=== PATIENT | male | born 1935 | race Caucasian/White ===

== ENCOUNTER → 2017-03-01 13:44 | Outpatient (CLI) | payer OTHER | END | disposition home or self-care (01) | LOC: D.RAD 13:44 | DX: M54.16 Radiculopathy, lumbar region (principal); M54.5 Low back pain ==

== ENCOUNTER 2017-03-30 05:23 | Day surgery (SDC) | payer MEDICARE ==
[2017-03-29 12:45] LABS: BASOPHILS 0.3 % (0-2); EOSINOPHILS 3.9 % (0-7); HEMATOCRIT 35.7 % (42.0-54.0); HEMOGLOBIN 12.5 g/dL (13.5-17.5); IMMATURE GRANULOCYTES 0.3 % (0-5); LYMPHOCYTES 18.2 % (15-50); MCH 33.5 pg (26.0-34.0); MCV 95.7 fL (80.0-100.0); MEAN PLATELET VOLUME 9.6 fL (7.4-10.4); MONOCYTES 6.1 % (2-11); NEUTROPHILS 71.2 % (40-80); PLATELET COUNT 186 10x3/uL (130-400); RBC 3.73 10x6/uL (4.20-6.10); RDW 12.6 % (11.5-14.5); WBC 6.9 10x3/uL (4.8-10.8)
[2017-03-29 12:53] LABS: APTT 23.4 SECONDS (22.8-39.4)
[2017-03-29 12:56] LABS: ANION GAP 12.3 mmol/L (8-16); CALCIUM 9.2 mg/dL (8.5-10.1); CARBON DIOXIDE 29.2 mmol/L (21.0-32.0); CREATININE - SERUM 1.5 mg/dL (0.6-1.3); POTASSIUM - SERUM 3.5 mmol/L (3.5-5.1)
[2017-03-29 13:05] LABS: PROTIME 13.1 SECONDS (11.6-15.0)
[~2017-03-30] VITALS: Ht 172.7 cm; Wt 95.3 kg
--- NOTE | ~2017-03-30 | OP ---
PATIENT NAME: ANGY KHALIL MEDICAL RECORD: [id number] :37 LOCATION:[facility] ADMISSION DATE: SURGEON: DUANE VAUGHN MD DATE OF OPERATION: 04/08/2017 PREOPERATIVE DIAGNOSES: Lumbar spinal stenosis and foraminal stenosis L2-L3, left and L4-L5, right. PROCEDURES: Lumbar laminotomy, medial facetectomy and foraminotomy at L2-L3 left at L4-L5 right with METRx retractor and microscopic illumination. DESCRIPTION OF TECHNIQUE: After induction of general endotracheal anesthesia, the patient was rolled prone on chest and hip rolls. The lumbar spine was prepped and draped in usual sterile fashion. Fluoroscopic x-ray and spinal needle localized the L2-L3 and L4-L5 interspaces. Two separate stab incisions were created, one at L2-L3 on the left and L4-L5 on the right. Each level was confirmed with fluoroscopic x-ray. A stab incision was created with a #11 blade in each level. A METRx retractor was advanced to the L2-L3 interspace on the left side and L4-L5 interspace on the right side. The level was confirmed with fluoroscopic x-ray at L2-L3 on the left and L4-L5 on the right. A microscope and Midas Grgeory drill were used to perform a laminotomy, medial facetectomy and foraminotomy at L2-L3 on the left. Hypertrophied ligamentum flavum was removed with Cloward rongeurs. Foraminotomy was carried out further with Cloward rongeurs. Following this, the L2 and L3 nerve roots were decompressed well on the left side. Next, at L4-L5, A Midas Gregory drill and microscope were used to perform a medial facetectomy, laminotomy and a foraminotomy at L4-L5 on the right. Hypertrophied ligamentum flavum was removed from the central canal as well as the foramen. A further foraminotomy was carried out. Following this, the L4 and L5 nerve roots were decompressed well. Meticulous hemostasis was maintained throughout both wounds. A retractor was removed on both wounds. Fascia was closed with 3-0 Vicryl suture at L2-L3 on the left and L4-L5 on the right. The skin and subdermal layer was closed with interrupted 3-0 Vicryl suture. The skin was closed with tera on both wounds. A sterile dressing was applied to both wounds. The patient was awakened in good condition and taken to recovery area. All counts were reported as correct. Estimated blood loss was minimal. TRANSINT:[id number] Voice Confirmation ID: [id number] DOCUMENT ID: [id number] DUANE VAUGHN MD CC: [id number] DICTATION DATE: 04/08/17 08 HOSPITAL TRAY SERVICE WORKER: 04/08/17 1114 [facility] [place] 03/30/17 [place] [id number]
[~2017-03-30 05:23] MED LIST: CALAN120 MG PO; HYDROCHLOROTH12.5 M1 PO
[2017-03-30] MEDS ORDERED: LEUPROLIDE ACETATE SC (06:23)
[2017-03-30 06:33] VITALS: BP 154/80; Ht 172.7 cm; Wt 95.3 kg
--- NOTE | 2017-03-30 08:59 | NUR ---
PATIENT WAS POSITIONED PRONE WITH ALL AREAS CHECKED, INCLUDING PENIS AND SCROTUM FOR ANY IMPINGEMENTS, NONE FOUND ALL AREAS PADDED AND SECURED, ESTHER.
--- NOTE | 2017-03-30 16:39 | NUR ---
1405 DRESSED. AWAKE & ALERT SITTING UP ON SIDE OF BED. GIVEN DISCHARGE INFORMATION INCLUDING MED REC., RTC APPT., LUMBAR SURGERY DISCHARGE INSTRUCTIONS SHEETS, & [facility] OUT PATIENT D/C INSTRUCTIONS. PT & VOICED UNDERSTANDING AFTER QUESTIONS ADDRESSED & ANSWERED. TO PRIVATE CAR PER WHEELCHAIR BY VOLUNTEER. HOME WITH OMAR KHALIL. Yao ACEVES R.N.
== END 2017-03-30 14:05 | disposition home or self-care (01) ==
LOC: D.OPS 05:23 → D.PAN 07:30 → D.OPS 14:05
PROVIDERS: Anesthesiology
DX: M48.06 Spinal stenosis, lumbar region (principal); M51.36 Other intervertebral disc degeneration, lumbar region; Z01.812 Encounter for preprocedural laboratory examination

== ENCOUNTER 2017-06-18 07:57 | Outpatient (CLI) | payer MEDICARE ==
--- NOTE | ~2017-06-18 | HEMODYNAMI ---
PATIENT:ANGY KHALIL MEDICAL RECORD: [id number] : 39 LOCATION:[facility] ADMISSION DATE: 06/18/17 Generatedon:06/18/201710:27 Patient name: ANGY KHALIL Patient #: [id number] SSN: : 1935 Date of study: 06/18/2017 Page: Of Hemodynamic Procedure Report Patient Data Patient Demographics Procedure consent was obtained First Name: ANGY Gender: Male Last Name: SIMRAN : 1935 [facility] Initial: E Age: 81 year(s) Patient #: [id number] Race: Unknown Additional ID: [id number] Contact details [address]: [address] [place] [address] [place] State: [place] City: [place] Zip code: [address] Past Medical History Allergies Allergen Reaction Date Comments Reported Sulfa drugs 06/18/2017 Admission Admission Data Admission Date: 06/18/2017 Admission Time: 7:57 Admit Source: Other Procedure Procedure Types Cath Procedure Diagnostic Procedure C [facility] w/Coronaries FFR/IVUS Intra-Coronary IVUS Initial PCI Procedure Coronary Stent Initial Miscellaneous Procedures Moderate Sedation up to 45 minutes Procedure Description Procedure Date Procedure Date: 06/18/2017 Procedure Start Time: 9:37 Procedure End Time: 10:27 Procedure Staff Name Function Rick Campos MD Performing Physician [place] RT Scrub Jairon Phoenix RN Nurse John Orozco RN History Teacher Sonia Noland RT Monitor Brannon Lomax RT Monitor Procedure Data Cath Procedure Fluoroscopy Diagnostic fluoroscopy Total fluoroscopy Time: 9.4 time: 9.4 min min Diagnostic fluoroscopy Total fluoroscopy dose: dose: 1190 mGy 1190 mGy Contrast Material Contrast Material Type Amount (ml) Isovue 300 120 Entry Location Entry Primary Successful Side Size Upsize Upsize Entry Closure Succes sful Closure Location (Fr) 1 (Fr) 2 (Fr) Remarks Device Remarks Radial Right 6 Fr artery Short Femoral Right 6 Fr Exoseal artery Short Estimated blood loss: 10 ml Diagnostic catheters Device Type Used For End Catheter Placement Diagnostic Terumo 5Fr Procedure [place] 110cm catheter Diagnostic Infinity 5Fr Procedure AR 2 MOD catheter Diagnostic Infinity 5Fr Procedure JL 4.0 catheter Diagnostic Infinity 5Fr Procedure AR 2 MOD catheter Procedure Complications No complications Procedure Medications Medication Administration Route Dosage 0.9% NaCl I.V. 100 ml/hr Oxygen NC 2 l/min Heparin Flush Bag added to field 2 bags (1000units/500ml NS) Lidocaine 2% added to field 20 Radial Cocktail added to field 1 syringe (Verapomil 2mg/Nitro 400mcg/Heparin 1500units) Versed I.V. 2 mg Fentanyl I.V. 100 mcg Radial Cocktail I.A. 1 syringe (Verapomil 2mg/Nitro 400mcg/Heparin 1500units) Versed I.V. 1 mg Fentanyl I.V. 50 mcg Versed I.V. 1 mg Heparin Bolus I.V. 4000 units Fentanyl I.V. 50 mcg Hemodynamics Rest Heart Rate: 87 (bpm) Snapshots Pre Cath Intra NCS Post Cath Vital Signs Time Heart Resp SPO2 etCO2 NIBP (mmHg) Rhythm Pain Sedation Rate (ipm) (%) (mmHg) Status Level (bpm) 9:22:37 83 20 99 30 208/112(174) NSR 0 (11) 10(A) , No pain 9:27:31 78 14 99 30 190/100(153) NSR 0 (11) 10(A) , No pain 9:34:04 77 17 100 0 194/119(140) NSR 0 (11) 10(A) , No pain 9:38:57 82 17 100 33.8 193/107(145) NSR 0 (11) 10(A) , No pain 9:43:46 78 15 97 30 173/87(125) NSR 0 (11) 10(A) , No pain 9:48:35 87 29 98 25.5 175/107(139) NSR 0 (11) 10(A) , No pain 9:53:26 79 20 99 30.8 188/121(161) NSR 0 (11) 10(A) , No pain 10:00:09 76 13 99 31.5 214/109(174) NSR 0 (11) 10(A) , No pain 10:06:01 76 13 99 36.1 201/81(157) NSR 0 (11) 9(A) , No pain 10:10:58 81 18 100 0 191/91(159) NSR 0 (11) 9(A) , No pain 10:16:36 80 17 99 0 190/102(161) NSR 0 (11) 9(A) , No pain 10:22:25 83 16 100 30.8 185/113(139) NSR 0 (11) 10(A) , No pain 10:27:20 80 15 100 30.8 198/95(139) NSR 0 (11) 10(A) , No pain Medications Time Medication Route Dose Verified Delivered Reason Note s Effectiveness by by 9:25:07 0.9% NaCl I.V. 100 Jairon Jairon Per physician ml/hr Alban Phoenix RN RN 9:25:17 Oxygen NC 2 l/min Jairon Jairon Per physician Alban Phoenix RN RN 9:25:30 Heparin Flush added 2 bags Jairon Jairon used for Bag to Alban Phoenix procedure (1000units/500ml field CORTES RN NS) 9:25:44 Lidocaine 2% added 20ml Jairon Jairon for local to vial Alban Phoenix anesthetic field CORTES RN 9:26:01 Radial Cocktail added 1 Jairon Jairon for (Verapomil to syringe Alban Phoenix vasodilation 2mg/Nitro field CORTES RN 400mcg/Heparin 1500units) 9:36:42 Versed I.V. 2 mg Jairon Jairon for sedation Alban Phoenix RN RN 9:37:02 Fentanyl I.V. 100 mcg Jairon Jairon for sedation Alban Phoenix RN RN 9:40:30 Radial Cocktail I.A. 1 Jairon Rick for (Verapomil syringe Alban Campos MD vasodilation 2mg/Nitro RN 400mcg/Heparin 1500units) 9:51:48 Versed I.V. 1 mg Jairon Jairon for sedation Alban Phoenix RN RN 9:52:00 Fentanyl I.V. 50 mcg Jairon Jairon for sedation Alban Phoenix RN RN 10:05:47 Versed I.V. 1 mg Jairon Jairon for sedation Alban Phoenix RN RN 10:18:58 Heparin Bolus I.V. 4000 Jairon Jairon for units Alban garcia RN RN 10:21:25 Fentanyl I.V. 50 mcg Jairon De [place] O for sedation Alban Phoenix RN neuropsychology division chief Log Time Note 9:06:40 Informed consent obtained and on chart 9:07:11 Admit Source: Other 9:07:15 Diagnostic Cath status Elective 9:07:17 John Orozco RN sent for patient. Start room use. 9:07:17 Time tracking: Regular hours 9:07:21 Plan of Care:Hemodynamics will remain stable., Cardiac rhythm will remain stable., Comfort level will be maintained., Respiratory function will remain adequate., Patient/ family verbilizes understanding of procedure., Procedure tolerated without complication., Recovers from procedure without complications.. 9:07:42 H&P Date Dictated: 06/02/2017 Within 30 days and on chart., H&P Addendum completed by physician on day of procedure. (MUST COMPLETE FOR ALL OUTPATIENTS). 9:12:56 Patient received from Pre/Post Procedure Room to CCL 1 Alert and oriented. Tansferred to table in Supine position. 9:12:58 Warm blankets applied, and harjit hugger turned on for patient comfort. 9:12:59 Correct patient and procedure confirmed by team. 9:12:59 ECG and BP/O2 sat monitors applied to patient. 9:20:45 Vital chart was started 9:22:05 Baseline sample Acquired. 9:22:12 Rhythm: sinus rhythm 9:22:13 Full Disclosure recording started 9:22:14 Pre-procedure instructions explained to patient. 9:22:15 Pre-op teaching completed and patient verbalized understanding. 9:22:18 Family in patients room. 9:22:19 Patient NPO since Midnight. 9:22:30 Patient allergic to Sulfa drugs 9:22:32 Is the patient allergic to Iodine/contrast media? No. 9:22:44 Is patient on blood thinner?Yes 9:22:47 ACC The patient was administered the following blood thiners within the last 24 hours: ACCPlavix 9:22:50 Patient diabetic? No. 9:22:54 Previous problem with sedation/anesthesia? No ? 9:22:55 Snore? Yes 9:22:56 Sleep apnea? No 9:22:57 Deviated septum? No 9:22:58 Opens mouth fully? Yes 9:23:00 Sticks out tongue? Yes 9:23:02 Airway obstruction? No ? 9:23:03 Dentures? No ? 9:23:11 Modified Javi's test Ulnar < 7 seconds 9:23:13 Patient pain scale 0/10 ?. 9:25:07 0.9% NaCl 100 ml/hr I.V. was administered by Jairon Phoenix RN; Per physician; 9:25:17 Oxygen 2 l/min NC was administered by Jairon Phoenix RN; Per physician; 9:25:30 Heparin Flush Bag (1000units/500ml NS) 2 bags added to field was administered by Jairon Phoenix RN; used for procedure; 9:25:44 Lidocaine 2% 20ml vial added to field was administered by Jairon Phoenix RN; for local anesthetic; 9:26:01 Radial Cocktail (Verapomil 2mg/Nitro 400mcg/Heparin 1500units) 1 syringe added to field was administered by Jairon Phoenix RN; for vasodilation; 9:27:28 IV patent on arrival in left forearm with 0.9% NaCl at [facility]. 9:27:34 Lab results completed and on chart. 9:27:37 Right Radial & Right Groin area was prepped with chlora-prep and draped in sterile fashion 9:27:38 Alarms reviewed by R. N. 9:27:39 Sharps counted by scrub and verified by R.N. 9:30:40 Use device set Radial Dx 9:30:41 Acist Syringe opened to sterile field. 9:30:43 Tegaderm 4 x 4 opened to sterile field. 9:30:44 Acist Manifold opened to sterile field. 9:30:44 Acist Hand Control opened to sterile field. 9:30:47 MBrace Wrist Support opened to sterile field. 9:30:47 Medline Cath Pack opened to sterile field. 9:30:49 Bag Decanter opened to sterile field. 9:30:50 Terumo 6Fr Slender Glidesheath opened to sterile field. 9:30:50 St [place]ino 260cm J .035 wire opened to sterile field. 9:33:00 Physician responded to page. 9:35:32 Physician arrived 9:35:33 --------ALL STOP TIME OUT------ 9:35:35 Final Timeout: patient, procedure, and site verified with staff and physician. All members of the team are in agreement. 9:35:37 Right Radial & Right Groin site verified by team. 9:35:41 Physical assessment completed. ASA score P 2 - A patient with mild systemic disease as per Rick Campos MD. 9:35:48 Sedation plan: IV Moderate Sedation Versed, Fentanyl 9:36:42 Versed 2 mg I.V. was administered by Jairon Phoenix RN; for sedation; 9:37:02 Fentanyl 100 mcg I.V. was administered by Jairon Phoenix RN; for sedation; 9:37:44 Procedure started. 9:37:55 Local anesthetic to right radial artery with Lidocaine 2% by Rick Campos MD.INITIAL ACCESS ONLY 9:38:35 Zero performed for pressure channel P1 9:39:38 A 6 Fr Short sheath was inserted into the Right Radial artery 9:40:30 Radial Cocktail (Verapomil 2mg/Nitro 400mcg/Heparin 1500units) 1 syringe I.A. was administered by Rick Campos MD; for vasodilation; 9:40:43 A Diagnostic Terumo 5Fr [place] 110cm catheter was advanced over the wire and used for Procedure. 9:41:10 LV gram done using HENDRICKSON 9:41:21 EF : 50 % 9:41:22 LV hemodynamics recorded. 9:41:23 LV hemodynamics recorded. 9:41:25 Injector settings: Ml/sec: 7, Volume: 15, 9:42:08 Catheter removed. 9:42:35 A Diagnostic Infinity 5Fr AR 2 MOD catheter was advanced over the wire and used for Procedure. 9:42:43 Cordis 6FR XB 3.5 guide catheter opened to sterile field. 9:44:55 Medtronic Launcher 6Fr AR 2.0 guide catheter opened to sterile field. 9:45:00 Catheter removed. 9:45:10 6 Fr AR 2 guide catheter was inserted over the wire 9:46:16 RCA angiography performed. 9:47:10 Guide catheter removed. 9:47:48 6 Fr XB 3.5 guide catheter was inserted over the wire 9:48:47 Guide Catheter removed. unable to cannulate vessel. 9:51:48 Versed 1 mg I.V. was administered by Jairon Phoenix RN; for sedation; 9:52:00 Fentanyl 50 mcg I.V. was administered by Jairon Phoenix RN; for sedation; 9:53:08 Terumo TR Band Large opened to sterile field. 9:55:54 XB 3.5 GUIDE KINKED IN THE ARTERY. EVERYTHING REMOVED INTACT. TR BAND DEPLOYED. SMALL HEMATOMA NOTED. BLEEDING UNDER CONTROL. PATIENT BEING PREPPED FOR GROIN ACCESS. 10:00:17 Use device set Femoral Dx 10:00:18 Tegaderm 4 x 4 opened to sterile field. 10:00:20 Acist Hand Control opened to sterile field. 10:00:20 Acist Manifold opened to sterile field. 10:00:21 Acist Syringe opened to sterile field. 10:00:22 Bag Decanter opened to sterile field. 10:00:22 Medline Cath Pack opened to sterile field. 10:00:24 St Dino 260cm J .035 wire opened to sterile field. 10:00:32 Terumo 6Fr [place] Sheath opened to sterile field. 10:05:16 Zero performed for pressure channel P1 10:05:47 Versed 1 mg I.V. was administered by Jairon Phoenix RN; for sedation; 10:06:00 Local anesthetic to right femoral artery with Lidocaine 2% by Rick Campos MD.ADDITIONAL ACCESS 10:06:10 A 6 Fr Short sheath was inserted into the Right Femoral artery 10:06:47 A Diagnostic Infinity 5Fr JL 4.0 catheter was advanced over the wire and used for Procedure. 10:07:12 Cook 18G 7cm Percutaneous Entry needle opened to sterile field. 10:08:05 LCA angiography performed. 10:08:41 Guide catheter removed. 10:08:49 A Diagnostic Infinity 5Fr AR 2 MOD catheter was advanced over the wire and used for Procedure. 10:09:20 RCA angiography performed. 10:11:07 Guide catheter removed. 10:13:10 [employer])tronic Launcher 6Fr AR 2.0 guide catheter opened to sterile field. 10:13:17 [place] [employer] PT Graphix J 300cm 0.014 guide wire opened to sterile field. 10:13:24 Merit BasixCompak Inflation Kit opened to sterile field. 10:13:35 6 Fr AR 2 guide catheter was inserted over the wire 10:13:40 PT GRAPHIX wire advanced. 10:13:45 Wire advanced across lesion. 10:14:02 IVUS catheter advanced over wire. 10:14:28 IVUS pass to RCA lesion performed. 10:14:57 IVUS catheter removed over wire. 10:17:30 [place] IVUS Catheter opened to sterile field. 10:18:58 Heparin Bolus 4000 units I.V. was administered by Jairon Phoenix RN; for anticoagulation; 10::38 Inflation Number: 1 A Medtronic Integrity 3.0 X 12 stent was prepped and advanced across the Mid RCA. The stent was deployed at 13 DANTE for 0:10 (min:sec). 10:20:11 Stent catheter was removed intact over wire. 10:20:16 Wire removed. 10:20:46 Guide catheter removed. 10:20:50 Cordis 6Fr Exoseal opened to sterile field. 10:21:02 Sheath removed intact; hemostasis achieved with Exoseal to the Right Femoral artery. 10:21:04 Procedure ended.(Physican Out) 10:21:16 Fluoroscopy time 09.40 minutes. 10:21:21 Fluoroscopy dose: 1190 mGy 10::21 Flurop Dose total: 1190 10:21:25 Fentanyl 50 mcg I.V. was administered by Jairon Phoenix RN; for sedation; 10:21:26 Contrast amount:Isovue 300 120ml. 10:21:28 Sharps counted by scrub and verified by R.N. 10:22:56 TR band inflated with 15cc of air. 10:22:59 Insertion/operative site no bleeding no hematoma. 10:23:05 Post-op/insertion site Right Femoral artery dressed using a 4 x 4 and Tegaderm. 10:23:11 Post procedure: right dorsailis pedis pulse 1+ Palpable, but thready & weak; easily obliterated. 10:23:14 Post-procedure physical assessment completed. ASA score P 2 - A patient with mild systemic disease as per Rick Campos MD. 10:23:18 Post procedure rhythm: unchanged. 10:23:34 Estimated blood loss: 10 ml 10:23:35 Post procedure instruction explained to patient.Patient verbalizes understanding. 10:23:36 Patient needs reinforcement of post procedure teaching. 10:24:17 Procedure type changed to Cath procedure, Diagnostic procedure, LHC, LHC w/Coronaries, FFR/IVUS, Intra-Coronary IVUS Initial, PCI procedure, Coronary Stent Initial, Miscellaneous Procedures, Moderate Sedation up to 45 minutes 10:26:50 Procedure and supply charges have been captured, reviewed, submitted and are correct. 10:26:55 Procedure Complication : No complications 10:27:00 Vital chart was stopped 10:27:01 See physician's report for complete and final results. 10:27:04 Report given to Pre/Post Procedure Room. 10:27:07 Patient transfered to Pre/Post Procedure Room with Stretcher. 10:27:09 Procedure ended. 10:27:09 Full Disclosure recording stopped 10:27:18 End room use (Document Last) Intervention Summary Intervention Notes Time ActionType Lesion and Equipment Action# Pressure Duration Attributes Used 10:19:38 Place stent Mid RCA Medtronic 1 13 00:10 Integrity 3.0 X 12 stent Device Usage Item Name Manufacture Quantity Catalog Number Hospital Part Current Mini mal Lot# / Charge Number Stock Stock Serial# Code Acist Acist 2 34154 962265 616780 202475 20 Syringe Medical Systems Rollbar Tegaderm 4 x 3M 2 [id number] 103574 780024 923281 5 4 Acist Acist 2 55008 676258 160205 303143 5 Manifold Medical Systems Inc Acist Hand Acist 2 17180 524540 409759 098113 5 Control Medical Systems Inc MBrace Wrist Advanced 1 140-0250-00 930568 25891 985096 5 Support Vascular Dynamics Medline Cath Cardinal 2 [id number] 177863 36793 296326 5 Pack Health Bag Decanter Microtek 2 2002S 958574 78368 705809 5 Medical Inc. Terumo 6Fr Terumo 1 [id number] 843082 891092 467086 [address] Dino St Dino 2 168407 125901 542477 997834 30 260cm J .035 wire Diagnostic Terumo 1 61-0159 599321 600145 705255 5 Terumo 5Fr [place] 110cm catheter Diagnostic Cardinal 2 [id number] 159996 213202 428752 20 Infinity 5Fr Health AR 2 MOD catheter Cordis 6FR Cardinal 1 [id number] 665198 801381 317290 2 XB 3.5 guide Health catheter Medtronic Medtronic 2 [id number] 966517 27482 872367 1 Launcher 6Fr AR 2.0 guide catheter Terumo 6Fr Terumo 1 [id number] 006166 716323 981040 40 [place] Sheath Diagnostic Cardinal 1 [id number] 009870 401048 640801 10 Infinity 5Fr Health JL 4.0 catheter Cook 18G 7cm Cook Medical 1 [id number] 956694 09862 632676 5 Percutaneous Entry needle [place] Sci [place] 1 [id number] 621292 379093 861529 5 PT Graphix J Scientific 300cm 0.014 guide wire Merit Merit 1 [id number] 984052 025631 774019 15 BasixCompak Medical Inflation Kit [place] 1 [id number] 611119 274029 259608 8 [place] IVUS Catheter Medtronic Medtronic 1 [id number] 231105 970261 6 [id number] Integrity 3.0 X 12 stent Cordis 6Fr Cardinal 1 EX600 199777 044830 977872 10 Exoseal Health Terumo TR Terumo 1 [id number] 889867 740916 204321 40 Band Large Signature Audit [place] Stage Time Signature Unsigned Intra-Procedure 06/18/2017 Sonia Noland 10:27:29 AM RT(R) Signatures Monitor : Sonia Noland Signature : RT Date : Time : Monitor : Brannon Lomax RT Signature : Date : Time : [facility] [address] [place] [address]
[~2017-06-18 07:57] MED LIST changes: +LEUPROLIDE ACETATE SC
[2017-06-18] MEDS ORDERED: PLAVIX75 MG PO (08:15)
[2017-06-18] MEDS ORDERED: ZESTRIL40 MG PO (08:15)
[2017-06-18 08:21] VITALS: BP 187/88; BMI 33.5
[2017-06-18 08:40] LABS: BASOPHILS 0.3 % (0-2); EOSINOPHILS 3.9 % (0-7); HEMATOCRIT 39.9 % (42.0-54.0); HEMOGLOBIN 13.8 g/dL (13.5-17.5); IMMATURE GRANULOCYTES 0.1 % (0-5); LYMPHOCYTES 20.4 % (15-50); MCH 33.3 pg (26.0-34.0); MCHC 34.6 g/dL (31.0-37.0); MCV 96.1 fL (80.0-100.0); MEAN PLATELET VOLUME 10.1 fL (7.4-10.4); MONOCYTES 6.7 % (2-11); NEUTROPHILS 68.6 % (40-80); PLATELET COUNT 192 10x3/uL (130-400); RBC 4.15 10x6/uL (4.20-6.10); RDW 13.3 % (11.5-14.5); WBC 7.2 10x3/uL (4.8-10.8)
[2017-06-18 08:49] LABS: ANION GAP 14.2 mmol/L (8-16); CREATININE - SERUM 1.7 mg/dL (0.6-1.3); POTASSIUM - SERUM 4.2 mmol/L (3.5-5.1)
[2017-06-18] MEDS ORDERED: BAYER CHEWABLE81 MG PO (10:30)
--- NOTE | 2017-06-18 10:56 | NUR ---
1040 RECEIVED PT FROM [employer], PT IS DROWSY. DENIES ANY C/O CHEST PAIN OR NAUSEA. TR BAND TO RIGHT WRIST WITH OLD BLOOD NOTED, NO NEW BLEEDING NOTED. FINGERS WARM, CAP REFILL IS BRISK. PT INSTRUCTED TO AVOID BENDING/FLEXING RIGHT WRIST. FEMSTOP TO RIGHT GROIN IS INTACT. NO BLEEDING NOTED. SMALL HEMATOMA OTED, WILL CONTINUE TO MONITOR. AT BEDSIDE, CALL LIGHT IS IN REACH. PT INSTRUCTED TO KEEP HEAD TO PILLOW AND RIGHT LEG STRAIGHT AND VERBALIZES UNDERSTANDING.
--- NOTE | 2017-06-18 11:02 | NUR ---
1055 PT DENIES ANY C/O. NO CHANGE IN RIGHT WRIST OR RIGHT GROIN CATH SITES. FINGERS AND TOES WARM, CAP REFILL IS BRISK. CALL LIGHT IN REACH.
--- NOTE | 2017-06-18 11:16 | NUR ---
PT DENIES NEEDS AT THIS TIME. SINUS THUY WITH RATE OF 56, DENIES ANY C/O CHEST PAIN. TR BAND INTACT WTIH NO BLEEDING NOTED. FEMSTOP IN PLACE, NO CHANGE IN HEMATOMA. AT BEDSIDE, CALL LIGHT IN REACH.
--- NOTE | 2017-06-18 11:28 | NUR ---
1120 PT SLEEPING, AWAKENS EASILY. DENIES ANY C/O. NO BLEEDING OR CHANGE IN HEMATOMA NOTED AT CATH SITES. AT BEDSIDE, CALL LIGHT IN REACH. FEMSTOP AND TR BANDS IN PLACE.
--- NOTE | 2017-06-18 11:35 | NUR ---
1135 STARTED WEANING AIR FROM FEMSTOP, 20MM HG REMOVED WITH NO BLEEDING OR HEMATOMA NOTED.
--- NOTE | 2017-06-18 11:58 | NUR ---
20 MM HG PRESSURE REMOVED FROM FEMSTOP, GROIN REMAINS STABLE WITH NO BLEEDING NOTED. PT DENIES ANY C/O AT THIS TIME. TR BAND FREE FROM BLEEDING OR HEMATOMA. AT BEDSIDE, CALL LIGHT IN REACH. OFFERED PO FLUIDS, PT REFUSES, STATES 'JUST WANT TO KEEP SLEEPING'.
--- NOTE | 2017-06-18 12:24 | NUR ---
1215 CONTINUE WEANING FEMSTOP, GROIN REMAINS STABLE WITH NO BLEEDING OR HEMATOMA NOTED. NO BLEEDING OR HEMATOMA AT TR BAND SITE. PT DENIES ANY C/O. PULSES PALPABLE, CAP REFILL IS BRISK. CALL LIGHT IN REACH. SINUS RHYTHM WITH OCCASIONAL PVC'S, RATE 60. BP IS 172/82
--- NOTE | 2017-06-18 12:32 | OP ---
PATIENT NAME: ANGY KHALIL MEDICAL RECORD: [id number] :37 LOCATION:[facility] ADMISSION DATE: SURGEON: BRIAN CONRAD MD DATE OF OPERATION: 06/18/2017 DATE OF SERVICE: 06/18/2017 PROCEDURES: 1. PTCA stent RCA. 2. Intravascular ultrasound. 3. Left heart catheterization. 4. Selective coronary angiography. 5. Left ventriculogram. INDICATION: Angina and coronary artery disease. PROCEDURE IN DETAIL: After informed consent was obtained and after detailed explanation of risks, benefits as well as alternative therapies, the patient elected to proceed with angiogram and angioplasty. The right femoral area was prepped and draped in normal sterile fashion. The right femoral artery was cannulated via modified Seldinger technique with placement of 6-Ecuadorean sheath. All catheters exchanged through this sheath. FINDINGS: The left ventriculogram was performed in standard 30-degree HENDRICKSON view, reveals good cardiac wall motion throughout all segments. Overall ejection fraction estimated at 60%. SELECTIVE CORONARY ANGIOGRAPHY: 1. Left main showed no significant angiographic disease. 2. Left anterior descending has mild irregularities, but no flow-limiting stenosis. 3. The left circumflex shows mild irregularities, but no flow-limiting stenosis. 4. Right coronary has 65-70% stenosis in the mid vessel confirmed by intravascular ultrasound. This correlates with the inferior perfusion defect on nuclear stress testing done. PTCA STENT OF THE RCA: The stent used was 3.0 x 12 mm Integrity. Result was 0% residual stenosis. OVERALL IMPRESSION: Successful percutaneous transluminal coronary angioplasty stent of the right coronary artery going from 65-70% initial stenosis to 0% residual. TRANSINT:[id number] Voice Confirmation ID: [id number] DOCUMENT ID: [id number] BRIAN CONRAD MD at 1232 CC: [id number] DICTATION DATE: 06/18/17 1024 COMMERCIAL REPRESENTATIVE: 06/18/17 1210 [place] [id number] [place] [id number]
--- NOTE | 2017-06-18 12:43 | NUR ---
ALL AIR REMOVED FROM FEMSTOP, GROIN IS STABLE, NO BLEEDING NOTED AND AREA IS SOFT AND NONTENDER. PEDAL PULSES PALPABLE. CALL LIGHT IN REACH, DR CONRAD HAS ROUNDED ON PT.
[2017-06-18] MEDS ORDERED: NORVASC10 MG PO (12:47)
--- NOTE | 2017-06-18 13:16 | NUR ---
FEMSTOP COMPLETELY REMOVED, 4X4 AND TEGADERM PLACED TO RIGHT GROIN CATH SITE. AREA IS FREE FROM BLEEDING OR HEMATOMA. PT DENIES ANY C/O. CALL LIGHT IN REACH.
--- NOTE | 2017-06-18 13:30 | NUR ---
1330 5 CC OF AIR REMOVED FROM TR BAND WITH NO BLEEDING OR HEMATOMA NOTED. DRESSING TO RIGHT GROIN REMAINS CDI, AREA IS SOFT AND NONTENDER.
--- NOTE | 2017-06-18 14:13 | NUR ---
1400 ALL AIR IS OUT OF TR BAND WITH NO BLEEDING OR HEMATOMA NOTED. HOB ELEVATED AND SANDWICH SERVED. NO BLEEDING OR HEMATOMA NOTED AT RIGHT GROIN SITE. PULSES PALPABLE.
--- NOTE | 2017-06-18 14:30 | NUR ---
1430 PT HAS TOLERATED SANDWICH WITH NO C/O. NO BLEEDING NOTED AT EITHER CATH SITE. 2X2 AND TEGADERM CDI TO RIGHT WRIST. IV DC'D WITH CATH INTACT. PT DRESSING FOR DC TO HOME.
--- NOTE | 2017-06-18 14:52 | NUR ---
1450 DC INSTRUCTIONS HAVE BEEN REVIEWED WITH PT AND SPOUSE WHO VERBALIZE UNDERSTANDING. PT HAS AMBULATED TO THE BATHROOM AND VOIDED QS. DENIES ANY C/O. PLAVIX AND NORVASC PRESCRIPTIONS TO PATIENT. PT ESCORTED TO PRIVATE AUTO VIA WC BY NURSE WTIH DRIVING HIM HOME.
== END 2017-06-18 14:50 | disposition home or self-care (01) ==
LOC: D.CATH 07:57
PROVIDERS: Internal Medicine Interventional Cardiology
DX: I25.119 Atherosclerotic heart disease of native coronary artery with unspecified angina pectoris (principal); R06.02 Shortness of breath; R60.0 Localized edema; R94.30 Abnormal result of cardiovascular function study, unspecified; I10 Essential (primary) hypertension; Z01.812 Encounter for preprocedural laboratory examination

== ENCOUNTER 2019-08-15 06:54 | Emergency (ER) | payer MEDICARE ==
[~2019-08-15] VITALS: Ht 172.7 cm; Wt 100.0 kg
[~2019-08-15 06:54] MED LIST changes: +BAYER CHEWABLE81 MG PO; +NORVASC10 MG PO; +PLAVIX75 MG PO; +ZESTRIL40 MG PO
[2019-08-15 06:55] VITALS: Ht 172.7 cm; Wt 100.0 kg
[2019-08-15] MEDS ORDERED: DILTIAZEM 24HR240 M4 PO (06:59)
[2019-08-15] MEDS ORDERED: HYDROCODON-ACE1 EAC2 PO ×2 (07:56→07:58)
[2019-08-15] MEDS ORDERED: IBUPROFEN800 MG PO (07:56)
[2019-08-15 08:36] VITALS: BP 151/82
== END 2019-08-15 08:36 | disposition home or self-care (01) ==
LOC: D.ER 06:54
DX: S22.32XA Fracture of one rib, left side, initial encounter for closed fracture (principal); W19.XXXA Unspecified fall, initial encounter; Y93.9 Activity, unspecified; Y92.9 Unspecified place or not applicable; I10 Essential (primary) hypertension